=== PATIENT | female | born 1965 | race Caucasian/White ===

== ENCOUNTER → 2021-04-26 14:00 | Outpatient (CLI) | payer OTHER, SELFPAY ==
--- NOTE | ~2021-04-26 | MM_ITS ---
EXAMINATION: MM screening [facility] BI w dominick HISTORY: Screening TECHNIQUE: Craniocaudal and mediolateral oblique 3-D tomosynthesis images were obtained and synthetic 2-D images were generated. CAD analysis was submitted and interpreted. COMPARISON: Comparison to multiple prior studies sequentially, with oldest reviewed study dated 12/21. BREAST PARENCHYMAL COMPOSITION: The breasts are extremely dense, which lowers the sensitivity of mamm ography. FINDINGS: There is no evidence of suspicious mass, calcification, or architectural distortion to sugg est malignancy in either breast. There has been no suspicious interval change. IMPRESSION: 1. No mammographic evidence of malignancy. 2. Recommend routine screening mammography in one year. BI-RADS Category 1: Negative Reviewed, dictated and finalized at location A.
== END ==
PROVIDERS: Visit Provider Obstetrics & Gynecology
DX: Z12.31 Encounter for screening mammogram for malignant neoplasm of breast (principal)
CPT/HCPCS: 77063; 77067

== ENCOUNTER → 2021-12-08 13:57 | Outpatient (CLI) | payer OTHER, SELFPAY ==
--- NOTE | ~2021-12-08 | US_ITS ---
EXAMINATION: US thyroid DATE: 12/08/2021 14:14 INDICATION: Hypothyroidism. TECHNIQUE: Multiple ultrasound images of the thyroid were obtained. COMPARISON: Thyroid ultrasound 04/15/2006 FINDINGS: The right thyroid lobe is absent. The left thyroid lobe measures 2.9 x 0.9 x 1.0 cm. The left thyroi d lobe demonstrates coarsened echotexture. No discrete nodules identified. Normal vascular flow is pr esent. IMPRESSION: 1. Coarsened echotexture in the thyroid status post right hemithyroidectomy, consistent with chronic lymphocytic (Naomi) thyroiditis. Reviewed, dictated and finalized at location B. IMPRESSION: 1. Coarsened echotexture in the thyroid status post right hemithyroidectomy, co nsistent with chronic lymphocytic (Naomi) thyroiditis.
== END ==
PROVIDERS: PCP Internal Medicine; Visit Provider Internal Medicine
DX: E03.9 Hypothyroidism, unspecified (principal)
CPT/HCPCS: 76536